=== PATIENT | female | born 1970 | race Caucasian/White ===

== ENCOUNTER 2024-04-12 05:20 | Inpatient (IN) | payer OTHER ==
[~2024-04-12] VITALS: Ht 167.6 cm; Wt 90.7 kg
[2024-04-12 06:34] LABS: HCG,QUAL RESULT NEGATIVE (NEGATIVE)
[2024-04-12] MEDS ORDERED: DEXAMETHASONE SOD PHOSPHATE 4 MG/ML VIAL ONE (07:00)
[2024-04-12] MEDS ORDERED: HYDROmorphone 1 MG/ML INJ. CARTRIDGE IVP PRN ×5 (08:15→11:00)
[2024-04-12] MEDS ORDERED: MIDAZOLAM HCL 2 MG/2 ML VIAL (VERSED) IVP PRN (08:15)
[2024-04-12] MEDS ORDERED: MEPERIDINE HCL/PF 25 MG/ML DISP.SYRIN IVP PRN (08:15)
[2024-04-12] MEDS ORDERED: METOCLOPRAMIDE HCL 10 MG/2 ML VIAL IVP PRN (08:15)
[2024-04-12] MEDS ORDERED: NALOXONE HCL 2 MG/2 ML SYR IVP PRN (10:00)
[2024-04-12] MEDS ORDERED: DIPHENHYDRAMINE HCL 25 MG CAPSULE PO PRN (10:00)
[2024-04-12] MEDS ORDERED: LACTULOSE 20 GM/30 ML UDC PO PRN (10:00)
[2024-04-12] MEDS ORDERED: BISACODYL 10 MG/SUPPOSITORY RC PRN (10:00)
[2024-04-12] MEDS ORDERED: NALOXONE HCL 0.4 MG/ML AMP (NARCAN) IVP PRN ×2 (10:00)
[2024-04-12] MEDS: METOCLOPRAMIDE HCL 10 MG/2 ML VIAL IVP PRN (10:05)
[2024-04-12] MEDS ORDERED: traMADol HCL HCL 50 MG TABLET (ULTRAM) PO PRN (11:00)
[2024-04-12] MEDS ORDERED: LORATADINE 10 MG TABLET PO PRN (11:00)
[2024-04-12] MEDS ORDERED: ONDANSETRON HCL 4 MG/2 ML VIAL IVP PRN (11:45)
[2024-04-12] MEDS: ACETAMINOPHEN 500 MG TABLET PO SCH (15:00)
[2024-04-12] MEDS: ACETAMINOPHEN 500 MG TABLET ONE (15:00)
[2024-04-12] MEDS: ACETAMINOPHEN 500 MG TABLET PO ONE (15:00)
[2024-04-12] MEDS: TAMSULOSIN HCL 0.4 MG CAP PO ONE (15:00)
[2024-04-12] MEDS: CEFAZOLIN 2 GM IVPB PREMIX 50 ML IV SCH (15:00)
[2024-04-12] MEDS: SCOPOLAMINE HYDROBROMIDE 1 MG PATCH .72 H (TRANSDERM-SCOP) TD ONE ×2 (15:00)
[2024-04-12] MEDS: LR 1,000 ML IV SCH (15:00)
[2024-04-12] MEDS: oxyCODONE HCL 10 MG TAB.ER.12H PO ONE ×2 (15:00)
[2024-04-12] MEDS: OXYCODONE/ACETAMINOPHEN 5-325 TABLET ONE (15:00)
[2024-04-12] MEDS: CELECOXIB 100 MG CAPSULE PO ONE (15:00)
[2024-04-12] MEDS: METOCLOPRAMIDE HCL 10 MG/2 ML VIAL ONE (15:00)
[2024-04-12] MEDS: CEFAZOLIN SOD 2 GM in D5W 50 ML IV ONE (15:00)
[2024-04-12] MEDS: CELECOXIB 100 MG CAPSULE ONE (15:00)
[2024-04-12 17:18] VITALS: O2SAT 98
[2024-04-12] MEDS: oxyCODONE HCL 5 MG TABLET PO PRN ×2 (17:51→22:46)
[2024-04-12] MEDS: KETOROLAC TROMETHAMINE 10 MG TABLET (TORADOL) PO SCH (18:58)
[2024-04-12 19:00] VITALS: BP_SYST 116; PULSE 83; RESP 16; TEMP 98.2; O2SAT 98
[2024-04-12 20:00] VITALS: BP_SYST 116; PULSE 83; RESP 16; TEMP 98.2; O2SAT 98
[2024-04-12] MEDS: SENNOSIDES/DOCUSATE SODIUM 1 TAB TABLET(SENOKOT-S) PO SCH (22:40)
[2024-04-13 00:14] VITALS: BP_SYST 112; PULSE 81; RESP 16; TEMP 98.5; O2SAT 98
[2024-04-13 05:56] LABS: BASOPHILS % (AUTO) 0.1 % (0.0-2.0); HEMATOCRIT 33.5 % (36-48); HEMOGLOBIN 11.1 g/dL (12.0-16.0); LYMPHOCYTES # (AUTO) 1.1 K/uL (1.0-5.5); LYMPHOCYTES % (AUTO) 8.4 % (20.5-51.5); MEAN CORPUSCULAR HEMOGLOBIN 30 pg (27-31); MEAN CORPUSCULAR HGB CONC 33 % (32-36); MEAN CORPUSCULAR VOLUME 89 fL (79.0-98.0); MONOCYTES # (AUTO) 0.8 K/uL (0.0-1.0); MONOCYTES % (AUTO) 6.5 % (1.7-9.3); NEUTROPHILS # (AUTO) 10.8 K/uL (1.8-7.7); PLATELET COUNT (AUTO) 181 K/uL (130-430); RED BLOOD CELL COUNT(AUTO) 3.77 MIL/uL (4.2-6.2); RED CELL DISTRIBUTION WIDTH 12.9 % (9.0-15.0); WHITE BLOOD COUNT (AUTO) 12.7 K/uL (4.8-10.8)
[2024-04-13 06:05] LABS: ALBUMIN 2.5 g/dL (3.4-4.8); CALCIUM 8.2 mg/dL (8.4-11.0); CREATININE 0.93 mg/dL (0.55-1.30); TOTAL BILIRUBIN 0.3 mg/dL (0.0-1.0); TOTAL PROTEIN, SERUM 5.6 g/dL (6.4-8.3)
[2024-04-13 07:00] VITALS: BP_SYST 123; PULSE 85; RESP 16; TEMP 97.7; O2SAT 98; O2SAT 99
[2024-04-13] MEDS: ASPIRIN 81 MG TAB.CHEW PO SCH (09:18)
[2024-04-13] MEDS: TAMSULOSIN HCL 0.4 MG CAP PO SCH (09:18)
[2024-04-13] MEDS: DECADRON 4 MG TABLET PO SCH (09:18)
[2024-04-13] MEDS: CELECOXIB 200 MG CAPSULE PO SCH (11:06)
[2024-04-13 11:29] VITALS: BP_SYST 125; PULSE 96; RESP 16; TEMP 98; O2SAT 98
[2024-04-13 12:06] VITALS: BP_SYST 123; PULSE 85; RESP 18; TEMP 97.8; O2SAT 99
== END 2024-04-13 14:30 | disposition home or self-care (01) | DRG 470 ==
LOC: SMU 05:20
PROVIDERS: ADMIT Student in an Organized Health Care Education/Training Program; ATTEND Student in an Organized Health Care Education/Training Program
PROC: 0SR90JA Replacement of Right Hip Joint with Synthetic Substitute, Uncemented, Open Approach (ICD-10-PCS; principal; 2024-04-12 07:09)
DX: M16.11 Unilateral primary osteoarthritis, right hip (principal)
CPT/HCPCS: 36415; 72170-TC; 73502; 76001; 80053; 84703; 85025; 87081; 88304; 88311; 96379; 97110-GP; 97116-GP; 97530-GP; A4649; C1713; C1776; J0690; J0696; J1100; J2405; J2704; J2765; J3010; J3370; J3465; J3490; J7060; J7120; J8540